=== PATIENT | male | born 1995 | race Hispanic/Latino ===

== ENCOUNTER 2022-06-18 13:01 | Emergency (ER) | payer OTHER ==
[~2022-06-18] VITALS: Ht 165.1 cm; Wt 97.5 kg
[2022-06-18 13:55] VITALS: BP 134/85
== END 2022-06-18 16:22 | disposition home or self-care (01) ==
LOC: EDH 13:01
DX: Z00.00 Encounter for general adult medical examination without abnormal findings (principal)
CPT/HCPCS: 99281